=== PATIENT | female | born 1930 | race Hispanic/Latino ===

== ENCOUNTER 2017-10-19 05:30 | Day surgery (SDC) | payer OTHER ==
[~2017-10-19] VITALS: Ht 167.6 cm; Wt 54.2 kg
[~2017-10-19 05:30] MED LIST: AMLO2.5T PO; ASPI-555 PO; CHOL400T4 PO; CILO50TA PO; CYAN250010 PO; DONE5TAB33 PO; FERR-82 PO; FOLI0.8T22 PO; FOLI5VIA2 IJ; LOSA25TA21 PO; METH8TAB PO; METO-391 PO; SERT20OR PO; SIMV5TAB6 PO; TOFA5TAB PO
[2017-10-19] MEDS ORDERED: SODIUM CHLORIDE 0.9% 1000ML 1,000 ML IV ONE (05:48)
[2017-10-19 06:14] VITALS: BP 130/52
[2017-10-19] MEDS ORDERED: PROPOFOL 10 MG/ML 20ML VIAL IV ONE (06:33)
[2017-10-19] MEDS ORDERED: GLYCOPYRROLATE 0.2 MG/ML 5 ML VIAL ONE (06:33)
[2017-10-19 06:46] VITALS: BP 87/42
[2017-10-19 07:02] VITALS: BP 111/49
== END 2017-10-19 07:25 | disposition home or self-care (01) ==
LOC: DAH 05:30 → ENDO 05:30
PROVIDERS: ATTEND Internal Medicine Gastroenterology
DX: K29.50 Unspecified chronic gastritis without bleeding (principal); D62 Acute posthemorrhagic anemia; E78.5 Hyperlipidemia, unspecified; I10 Essential (primary) hypertension; M06.9 Rheumatoid arthritis, unspecified; M35.00 Sjogren syndrome, unspecified; Z90.49 Acquired absence of other specified parts of digestive tract; Z98.890 Other specified postprocedural states; Z79.899 Other long term (current) drug therapy; Z90.710 Acquired absence of both cervix and uterus; M19.90 Unspecified osteoarthritis, unspecified site
CPT/HCPCS: 43239; 88305; 88312; 93005; A4606; J2704; J3490; J7030

== ENCOUNTER → 2018-12-07 | Outpatient (CLI) | payer OTHER ==
[~2018-12-07] MED LIST changes: -AMLO2.5T PO; +AMLO2.5T4 PO; -ASPI-555 PO; -CYAN250010 PO; -FOLI5VIA2 IJ; -LOSA25TA21 PO; +LOSA25TA41 PO; -METH8TAB PO; +SIMV5TAB58 PO; -SIMV5TAB6 PO; -TOFA5TAB PO
== END | disposition home or self-care (01) ==
LOC: SHCH 14:38
PROVIDERS: ATTEND Internal Medicine Cardiovascular Disease
DX: I73.9 Peripheral vascular disease, unspecified (principal)
CPT/HCPCS: 93925

== ENCOUNTER 2019-05-27 10:23 | Observation (INO) | payer OTHER ==
[~2019-05-27] VITALS: Ht 172.7 cm; Wt 43.3 kg
[2019-05-27 10:57] LABS: EOSINOPHILS % (AUTO) 1.7 % (0.0-8.0); HEMATOCRIT 30.3 % (36-48); LYMPHOCYTES % (AUTO) 9.8 % (21.0-51.0); MEAN CORPUSCULAR HEMOGLOBIN 30.7 pg (27.0-33.0); MEAN CORPUSCULAR HGB CONC 32.3 g/dL (32.0-36.0); MONOCYTES % (AUTO) 6.7 % (3.0-13.0); NEUTROPHILS % (AUTO) 81.5 % (40.0-77.0); PLATELET COUNT (AUTO) 118 K/uL (130-400); RED BLOOD CELL COUNT(AUTO) 3.19 MIL/uL (4.00-5.50); RED CELL DISTRIBUTION WIDTH 16.3 % (11.0-15.5); WHITE BLOOD COUNT (AUTO) 6.3 K/uL (4.8-10.8)
[2019-05-27 11:06] LABS: CREATININE 0.9 mg/dL (0.5-1.5)
[2019-05-27] MEDS ORDERED: ACETAMINOPHEN 325 MG TAB ONE ×2 (11:14→18:46)
[2019-05-27 11:18] LABS: ALBUMIN 3.2 g/dL (3.5-5.0); BILIRUBIN,TOTAL 0.9 mg/dL (0.2-1.0); TOTAL PROTEIN, SERUM 7.6 g/dL (6.0-8.3); TROPONIN I 0.46 ng/mL (0.00-0.06)
[2019-05-27 11:42] LABS: INR 1.13 (0.85-1.15); PARTIAL THROMBOPLASTIN TIME 26.8 SEC (26.3-35.5); PROTHROMBIN TIME 11.8 SEC (9.6-11.6)
[2019-05-27 12:34] LABS: APPEARANCE,URINE Cloudy (CLEAR); BILIRUBIN,URINE Negative (NEGATIVE); COLOR,URINE Yellow (YELLOW); GLUCOSE, URINE (UA) Negative (NEGATIVE); KETONES,URINE Negative (NEGATIVE); LEUKOCYTE ESTERASE ,URINE Moderate (NEGATIVE); NITRATE,URINE Positive (NEGATIVE); OCCULT BLOOD,URINE Small (NEGATIVE); PROTEIN,URINE 300 mg/dL (NEGATIVE); UROBILINOGEN,URINE 0.2 mg/dL (0.2-1.0)
[2019-05-27 12:53] LABS: BACTERIA,URINE Moderate /HPF (None Seen); WBC,URINE 26-50 /HPF (0-1)
[2019-05-27 12:54] LABS: MUCUS,URINE Few LPF (None Seen)
[2019-05-27] MEDS ORDERED: CEFTRIAXONE SODIUM 1 GM ONE (12:54)
[2019-05-27] MEDS ORDERED: ASPIRIN 325 MG TABLET ONE (13:03)
[2019-05-27] MEDS ORDERED: IOHEXOL-350 50ML VIAL IV ONE (13:13)
[2019-05-27 13:23] LABS: ABG BASE EXCESS -3.7 mmol/L (-2.0-3.0); ABG HCO3 20.2 mmol/L (21.0-28.0); ABG PCO2 34 mmHg (32-45)
[2019-05-27 17:54] LABS: TROPONIN I 0.34 ng/mL (0.00-0.06)
[2019-05-27] MEDS ORDERED: IBUPROFEN 600 MG TABLET ONE (20:48)
[2019-05-27 20:55] VITALS: BP 138/67
[2019-05-27] MEDS ORDERED: IBUPROFEN 600 MG TABLET PO PRN (21:15)
[2019-05-27] MEDS ORDERED: ACETAMINOPHEN 325 MG TAB PO PRN (21:15)
[2019-05-27] MEDS ORDERED: PANT40TA25 PO (21:56)
[2019-05-27] MEDS ORDERED: FURO20TA4 PO (21:56)
[2019-05-27] MEDS ORDERED: MULT-1250 PO (21:56)
[2019-05-27] MEDS ORDERED: GABA-531 PO (21:56)
[2019-05-27] MEDS ORDERED: MV-M1TAB20 PO (21:56)
[2019-05-27] MEDS ORDERED: MEGE20TA PO (21:56)
[2019-05-27] MEDS ORDERED: SERT100T12 PO (21:56)
[2019-05-27] MEDS ORDERED: LEVO50TA11 PO (21:56)
[2019-05-27] MEDS ORDERED: AEC81 PO (21:56)
[2019-05-27] MEDS ORDERED: CARV25TA77 PO (21:56)
[2019-05-28 00:05] VITALS: BP 144/70
[2019-05-28 01:16] LABS: TROPONIN I 0.92 ng/mL (0.00-0.06)
[2019-05-28 04:39] VITALS: BP 145/69
[2019-05-28 07:00] VITALS: BP 141/70
[2019-05-28] MEDS ORDERED: ASPIRIN 325 MG TABLET PO SCH (09:00)
--- NOTE | 2019-05-28 09:52 | NUR ---
CHART REVIWED ACLayne GENERATED CALL TO MD TO DISCUSS POC; YSABEL Jacinto FOLLOW UP LATER
--- NOTE | 2019-05-28 10:11 | NUR ---
DR. Ericka COLVIN HERE . UPDATE OF LABS , Bre SAGASTUME , SPOKE WITH PT AND SON,
[2019-05-28 11:00] VITALS: BP 146/70
[2019-05-28] MEDS ORDERED: CEFTRIAXONE SODIUM 1 GM IVP SCH (13:00)
--- NOTE | 2019-05-28 13:00 | NUR ---
DC PLAN PER PATIENT, IS INDEPENDENT WITH ADLS, LIVES WITH SPOUSE, HAS PROVIDER FOR 4HR PER DAY MON-FRI AND 1HR PER DAY ON SAT AND SUN, HAS USE OF ROLLING WALKER, SC, CANE AND FEELS SAFE AT HOME. Addendum: 05/28/19 at 1726 by TREVOR HUNT RN CM Amended: Links added.
[2019-05-28 16:00] VITALS: BP 149/71
[2019-05-28 20:00] VITALS: BP 134/62
[2019-05-28] MEDS ORDERED: CARVEDILOL 12.5 MG TABLET PO SCH (21:00)
[2019-05-28] MEDS ORDERED: CEFU500T67 PO ×2 (21:19→21:20)
--- NOTE | 2019-05-28 21:45 | NUR ---
Removed sl from r hand without incident, catheter intact; D/C per md order home/self care. Prescription rec'd by son; d/c teaching completed re: disease process and antibiotic therapy. W/C to private vehicle and pt./family left without incident.
== END 2019-05-28 21:45 | disposition home or self-care (01) ==
LOC: EDH 10:23 → EDHIP 13:50 → 3CH 19:41
PROVIDERS: ADMIT Internal Medicine; ATTEND Internal Medicine
DX: N39.0 Urinary tract infection, site not specified (principal); R79.89 Other specified abnormal findings of blood chemistry; F03.90 Unspecified dementia, unspecified severity, without behavioral disturbance, psychotic disturbance, mood disturbance, and anxiety; I10 Essential (primary) hypertension; E78.5 Hyperlipidemia, unspecified; E11.9 Type 2 diabetes mellitus without complications; Z79.899 Other long term (current) drug therapy
CPT/HCPCS: 36415; 36600; 71045; 71260; 80053; 81001; 82550 ×3; 82803; 83605; 83874 ×3; 84145; 84484 ×4; 85025; 85610; 85730; 87040 ×2; 87077; 87088; 87186; 87804 ×2; 93005 ×2; 99284; G0378 ×32; J0696; Q9967

== ENCOUNTER → 2019-06-25 | Outpatient (CLI) | payer OTHER ==
[~2019-06-25] MED LIST changes: +AEC81 PO; -AMLO2.5T4 PO; +CARV25TA77 PO; +CEFU500T67 PO; -CHOL400T4 PO; -CILO50TA PO; -FERR-82 PO; -FOLI0.8T22 PO; +FURO20TA4 PO; +GABA-531 PO; +LEVO50TA11 PO; -LOSA25TA41 PO; +MEGE20TA3 PO; -METO-391 PO; +MULT-1250 PO; +MV-M1TAB20 PO; +PANT40TA25 PO; +SERT100T12 PO; -SERT20OR PO; -SIMV5TAB58 PO
[2019-06-25 13:16] LABS: CREATININE 0.9 mg/dL (0.5-1.5); POTASSIUM 4.1 mmol/L (3.5-5.1); THYROID STIMULATING HORMONE 2.57 uIU/mL (0.36-3.74)
== END | disposition home or self-care (01) ==
LOC: LAB 11:47
PROVIDERS: ATTEND Internal Medicine Cardiovascular Disease
DX: I35.0 Nonrheumatic aortic (valve) stenosis (principal); E78.5 Hyperlipidemia, unspecified
CPT/HCPCS: 36415; 80048; 84443